=== PATIENT | female | born 1975 | race Caucasian/White ===

== ENCOUNTER 2017-03-13 21:30 | Emergency (ER) | payer MEDICAID ==
[2017-03-13 21:31] VITALS: BMI 33.3
[2017-03-13 22:17] VITALS: BP 140/80
[2017-03-13] MEDS ORDERED: Sodium Chloride 0.9% 1,000 ML IV STA (22:41)
[2017-03-13] MEDS ORDERED: Morphine 4 mg/ml ISec IVP STA (22:41)
--- NOTE | 2017-03-13 22:43 | ED PDOC ---
"Arrival/HPI <Arnie Anne - Last Filed: 03/14/17 01:05> - General Historian: Patient <Jonathon Saini - Last Filed: 03/14/17 02:02> - General Chief Complaint: Abdominal Pain Time Seen by Provider: 03/13/17 22:39 - History of Present Illness Narrative History of Present Illness (Text): 03/13/17 22:41 41 y/o female, pmh including renal colic, nkda, c/o lt. flank pain radiating to the lt. lower abdomen started yesterday. Sharp pain, admits urinary frequency and urgency, no hematuria, no vaginal bleeding or discharge, no night sweat, no nausea or vomiting, no rash, no other medical or psychological complaints. ( Jonathon Saini) Past Medical History - Provider Review Nursing Documentation Reviewed: Yes - Infectious Disease Hx of Infectious Diseases: None - Cardiac Hx Cardiac Disorders: Yes Hx Hypertension: Yes - Pulmonary Hx Respiratory Disorders: No - Neurological Hx Neurological Disorder: No - HEENT Hx HEENT Disorder: No - Renal Hx Renal Disorder: No - Endocrine/Metabolic Hx Endocrine Disorders: No - Hematological/Oncological Hx Blood Disorders: No - Integumentary Hx Dermatological Disorder: No - Musculoskeletal/Rheumatological Hx Musculoskeletal Disorders: No - Gastrointestinal Hx Gastrointestinal Disorders: No - Genitourinary/Gynecological Hx Genitourinary Disorders: No - Psychiatric Hx Psychophysiologic Disorder: No Hx Substance Use: No - Anesthesia Hx Anesthesia: No - Suicidal Assessment Feels Threatened In Home Enviroment: No <Jonathon Saini - Last Filed: 03/14/17 02:02> Family/Social History - Physician Review Nursing Documentation Reviewed: Yes Family/Social History: Unknown Family HX Smoking Status: Current Some Days Smoker Hx Alcohol Use: Yes Hx Substance Use: No <Jonathon Saini - Last Filed: 03/14/17 02:02> Allergies/Home Meds <Arnie Anne - Last Filed: 03/14/17 01:05> <Jonathon Saini - Last Filed: 03/14/17 02:02> Allergies/Adverse Reactions: Allergies No Known Allergies Allergy (Verified 03/13/17 22:12) Home Medications: Home Meds Medication Instructions Recorded Confirmed Propranolol [Propranolol HCl] 10 mg PO BID 03/13/17 03/13/17 Review of Systems - Review of Systems Constitutional: absent: Fatigue Eyes: absent: Vision Changes ENT: absent: Hearing Changes Respiratory: absent: SOB, Cough Cardiovascular: absent: Chest Pain Gastrointestinal: Abdominal Pain. absent: Nausea, Vomiting Genitourinary Female: Frequency. absent: Hematuria, Urine Output Changes, Vaginal Bleeding, Vaginal Discharge Musculoskeletal: Back Pain Skin: absent: Rash, Pruritis, Skin Lesions <Jonathon Saini - Last Filed: 03/14/17 02:02> Physical Exam Vital Signs Reviewed: Yes Temperature: Afebrile Blood Pressure: Normal Pulse: Regular Respiratory Rate: Normal Appearance: Positive for: Well-Appearing, Non-Toxic Pain Distress: Severe Mental Status: Positive for: Alert and Oriented X 3 - Systems Exam Head: Present: Atraumatic, Normocephalic Pupils: Present: PERRL Extroacular Muscles: Present: EOMI Conjunctiva: Present: Normal Mouth: Present: Moist Mucous Membranes Neck: Present: Normal Range of Motion Respiratory/Chest: Present: Clear to Auscultation, Good Air Exchange. No: Respiratory Distress, Accessory Muscle Use Cardiovascular: Present: Regular Rate and Rhythm, Normal S1, S2. No: Murmurs Abdomen: Present: Normal Bowel Sounds. No: Tenderness, Distention, Peritoneal Signs Back: Present: Normal Inspection, CVA Tenderness (+lt.) Upper Extremity: Present: Normal Inspection. No: Cyanosis, Edema Lower Extremity: Present: Normal Inspection. No: Edema Neurological: Present: GCS=15, Speech Normal, Motor Func Grossly Intact, Gait Normal, Memory Normal Skin: Present: Warm, Dry, Normal Color. No: Rashes Psychiatric: Present: Alert, Oriented x 3, Normal Insight, Normal Concentration <Jonathon Saini - Last Filed: 03/14/17 02:02> Vital Signs Temp Pulse Resp BP Pulse Ox 03/13/17 22:14 98.3 F 92 H 18 140/80 99 03/13/17 22:11 98.3 F 92 H 16 140/87 99 Medical Decision Making <rAnie Anne - Last Filed: 03/14/17 01:05> - Lab Interpretations I have reviewed the lab results: Yes Interpretation: No clinic. lab abnormalty - RAD Interpretation Sales Service Representative: Radiologist <Jonathon Saini - Last Filed: 03/14/17 02:02> ED Course and Treatment: 03/13/17 22:42 -labs/ua -CT abdomen and pelvis -IVF/morphine -observe and reassess 03/14/17 01:59 -labs are non-significant -UA show no UTI -CT abdomen and pelvis show no significant acute changes compared with previous study, there is moderate stool -Discharge home with magnesium citrate, motrin, stay hydrated, bed rest, follow up with your own pmd and GI within 2 days, return to the ER for any new or worsening signs or symptoms. (Jonathon Saini) - Lab Interpretations Lab Results: 03/13/17 23:10 03/13/17 23:10 Lab Results 03/13/17 23:10: Sodium 139, Potassium 4.2, Chloride 102, Carbon Dioxide 23, Anion Gap 18, BUN 10, Creatinine 0.5, Est GFR ( Amer) > 60, Est GFR (Non- Af Amer) > 60, Random Glucose 116 H, Calcium 9.5, Total Bilirubin 0.4, AST 31, ALT 46, Alkaline Phosphatase 73, Total Protein 8.1, Albumin 4.6, Globulin 3.6, Albumin/Globulin Ratio 1.3, Lipase 51 03/13/17 23:10: Urine Color Yellow, Urine Appearance Sl cloudy, Urine pH 7.5, Ur Specific [place] 1.015, Urine Protein 30 H, Urine Glucose (UA) 100 H, Urine Ketones Negative, Urine Blood Trace-lysed H, Urine Nitrate Negative, Urine Bilirubin Negative, Urine Urobilinogen 0.2, Ur Leukocyte Esterase Negative, Urine RBC 0 - 2, Urine WBC 0 - 2, Ur Epithelial Cells 6 - 8 03/13/17 23:10: WBC 10.8 D, RBC 4.66, Hgb 13.6, Hct 38.9, MCV 83.5, MCH 29.2, MCHC 35.0, RDW 12.4, Plt Count 261, MPV 10.0, Gran % 54.5, Lymph % (Auto) 35.4 H , [place] % (Auto) 6.2 H, Eos % (Auto) 3.5, Baso % (Auto) 0.4, Gran # 5.85, Lymph # 3.8 H, [place] # 0.7 H, Eos # 0.4, Baso # 0.04 - RAD Interpretation Radiology Orders: 03/13/17 22:41 ABDOMEN & PELVIS [ABD & PELVIS W/O PO OR IV CONT] [CT] Stat 03/13/17 22:41 ABDOMEN & PELVIS [ABD & PELVIS W/O PO OR IV CONT] [CT] Stat ABDOMEN: Liver: There is a small granuloma in the liver. Gallbladder and bile ducts: unremarkable Pancreas: Pancreas is mildly atrophic. Spleen: unremarkable Adrenals: unremarkable Kidneys and ureters: Right kidney and ureter are unremarkable. There are nonobstructing left renal stones. There is mild left ureterectasis to the level of the iliac vessels.. There are no left ureteral stones. Stomach and bowel: Stomach is partially distended. Rotation is normal. There is no obstruction. Appendix and terminal ileum are unremarkable. There is moderate stool in the colon. There is scattered diverticulosis. SAMEERA MORINIKA | Final Radiology Report CONFIDENTIALITY STATEMENT This report is intended only for use by the referring physician, and only in accordance with law. If you received this in error, call [phone]. Page 2 of 2 Appendix: See above. PELVIS: Bladder: Bladder is partially distended. Reproductive: Uterus is unremarkable. There is a very small fatty right adnexal lesion, unchanged. Right adnexa is otherwise unremarkable. Left adnexa is unremarkable. ABDOMEN and PELVIS: Intraperitoneal space: There is no free air or free fluid. Bones/joints: There are degenerative changes in the osseus structures. Soft tissues: There is a small fat containing umbilical hernia. Vasculature: There are vascular calcifications. Lymph nodes: There is shotty adenopathy. IMPRESSION: Nonobstructing left renal stones, no obstructing renal or ureteral stones; mild left ureterectasis to the level of the iliac vessels, unchanged compared to prior study Thank you for allowing us to participate in the care of your patient. Dictated and Authenticated by: Dolores Conti MD 03/14/2017 1:46 AM Eastern Time ([place] & [place]) (Jonathon Saini) - Medication Orders Current Medication Orders: Discontinued Medications Sodium Chloride (Sodium Chloride 0.9%) 1,000 mls @ 999 mls/hr IV .Q1H1M STA Stop: 03/13/17 23:41 Last Admin: 03/13/17 23:19 Dose: 999 mls/hr Morphine Sulfate (Morphine) 4 mg IVP STAT STA Stop: 03/13/17 22:42 Last Admin: 03/13/17 23:18 Dose: 4 mg - PA / DICER OPERATOR / Resident Statement GEORGE has reviewed & agrees with the documentation as recorded. GEORGE has examined the patient and agrees with the treatment plan. <Arnie Anne - Last Filed: 03/14/17 01:05> - PA / DICER OPERATOR / Resident Statement GEORGE has reviewed & agrees with the documentation as recorded. <Jonathon Saini - Last Filed: 03/14/17 02:02> Disposition/Present on Arrival <Arnie Anne - Last Filed: 03/14/17 01:05> - Present on Arrival Any Indicators Present on Arrival: No History of DVT/PE: No History of Uncontrolled Diabetes: No Urinary Catheter: No History of Decub. Ulcer: No History Surgical Site Infection Following: None - Disposition Have Diagnosis and Disposition been Completed?: Yes Disposition Time: 02:01 Patient Plan: Discharge <Jonathon Saini - Last Filed: 03/14/17 02:02> - Disposition Diagnosis: Constipation, Abdominal pain Disposition: HOME/ ROUTINE Condition: IMPROVED Additional Instructions: -Discharge home with magnesium citrate, motrin, stay hydrated, bed rest, follow up with your own pmd and GI within 2 days, return to the ER for any new or worsening signs or symptoms. Prescriptions: Ibuprofen [Motrin] 600 mg PO QID PRN #24 tab PRN Reason: Other Referrals: Daniel WORTHINGTON,MD Adelita [Medical Doctor] - Follow up with primary [facility] [place] [Outside] - Follow up with primary Forms: [employer] (E[place]ian), WORK NOTE"
[2017-03-13] MEDS ORDERED: Sodium Chloride 0.9% 1,000 ML IV SCH (22:45)
[2017-03-13 23:29] LABS: BASO # 0.04 K/mm3 (0.0-2.0); BASO % 0.4 % (0.0-3.0); EOS # 0.4 (0.0-0.7); EOS % 3.5 % (1.5-5.0); GRAN # 5.85 (1.4-6.5); GRAN % 54.5 % (50.0-68.0); HEMOGLOBIN 13.6 g/dL (12.0-16.0); LYMPH # 3.8 (1.2-3.4); LYMPH % 35.4 % (22.0-35.0); MEAN CELL VOLUME 83.5 fl (80.0-105.0); MEAN CORPUSCULAR HEMOGLOBIN 29.2 pg (25.0-35.0); MONO # 0.7 (0.1-0.6); MONO % 6.2 % (1.0-6.0); PLATELET COUNT 261 10^3/uL (120.0-450.0); RBC 4.66 10^6/uL (3.5-6.1); RED CELL DISTRIBUTION WIDTH 12.4 % (11.5-14.5); WHITE BLOOD COUNT 10.8 10^3/ul (4.5-11.0)
[2017-03-13 23:30] LABS: PH,URINE 7.5 (4.7-8.0); URINE BILIRUBIN NEGATIVE (NEGATIVE); URINE BLOOD TRACE-LYSED (NEGATIVE); URINE GLUCOSE (UA) 100 mg/dL (NEGATIVE); URINE LEUKOCYTE ESTERASE NEGATIVE Leu/uL (NEGATIVE); URINE NITRATE NEGATIVE (NEGATIVE); URINE PROTEIN 30 mg/dL (<30 mg/dL); URINE UROBILINOGEN 0.2 E.U./dL (<1 E.U./dL)
[2017-03-13 23:36] LABS: URINE APPEARANCE SL CLOUDY (CLEAR); URINE COLOR YELLOW (YELLOW)
[2017-03-13 23:38] LABS: ALB/GLOB RATIO 1.3 (1.1-1.8); ALBUMIN 4.6 g/dL (3.0-4.8); ALT/SGPT 46 U/L (7-56); AST/SGOT 31 U/L (15-39); BLOOD UREA NITROGEN 10 mg/dL (7-21); CALCIUM 9.5 mg/dL (8.4-10.5); GFR AFRICAN-AMERICAN > 60; GFR NON-AFRICAN AMERICAN > 60; LIPASE 51 U/L (23-300)
[2017-03-13 23:44] LABS: URINE RBC 0 - 2 /hpf (0-2); URINE WBC 0 - 2 /hpf (0-6)
--- NOTE | 2017-03-14 01:47 | CT ---
EXAM: CT Abdomen and Pelvis Without Intravenous Contrast CLINICAL HISTORY: 41 years old, female; Pain; Abdominal pain; Flank; Left; Additional info: Lt. Flank pain TECHNIQUE: Axial computed tomography images of the abdomen and pelvis without intravenous contrast. This CT exam was performed using one or more of the following dose reduction techniques: automated exposure control, adjustment of the mA and/or kV according to patient size, and/or use of iterative reconstruction technique. Coronal and sagittal reformatted images were created and reviewed. EXAM DATE/TIME: 03/13/2017 10:41 PM COMPARISON: CT - ABD PELVIS W/O PO OR IV CONT 03/02/2016 8:20:01 PM FINDINGS: Lower thorax: Heart size is normal. There is a small hiatal hernia. There is minimal scarring at the lung bases ABDOMEN: Liver: There is a small granuloma in the liver. Gallbladder and bile ducts: unremarkable Pancreas: Pancreas is mildly atrophic. Spleen: unremarkable Adrenals: unremarkable Kidneys and ureters: Right kidney and ureter are unremarkable. There are nonobstructing left renal stones. There is mild left ureterectasis to the level of the iliac vessels.. There are no left ureteral stones. Stomach and bowel: Stomach is partially distended. Rotation is normal. There is no obstruction. Appendix and terminal ileum are unremarkable. There is moderate stool in the colon. There is scattered diverticulosis. Appendix: See above. PELVIS: Bladder: Bladder is partially distended. Reproductive: Uterus is unremarkable. There is a very small fatty right adnexal lesion, unchanged. Right adnexa is otherwise unremarkable. Left adnexa is unremarkable. ABDOMEN and PELVIS: Intraperitoneal space: There is no free air or free fluid. Bones/joints: There are degenerative changes in the osseus structures. Soft tissues: There is a small fat containing umbilical hernia. Vasculature: There are vascular calcifications. Lymph nodes: There is shotty adenopathy. IMPRESSION: Nonobstructing left renal stones, no obstructing renal or ureteral stones; mild left ureterectasis to the level of the iliac vessels, unchanged compared to prior study
[2017-03-14] MEDS ORDERED: Magnesium Citrate Oral SOL (300 ml) PO ONE (02:00)
[2017-03-14 02:16] VITALS: PULSE 90; TEMP 98.1
[2017-03-14 02:17] VITALS: RESP 16; O2SAT 98
== END 2017-03-14 02:16 | disposition home or self-care (01) ==
LOC: ED 21:30
DX: K59.00 Constipation, unspecified (principal); R10.9 Unspecified abdominal pain
CPT/HCPCS: 74176; 80053; 81001; 83690; 85025; 96374; 99283; J2270; J7040

== ENCOUNTER 2017-04-19 18:10 | Emergency (ER) | payer MEDICAID ==
[2017-04-19 18:33] VITALS: BMI 33.0
[2017-04-19 18:37] VITALS: BP 148/91; PULSE 88; RESP 18; TEMP 98.7; O2SAT 98
--- NOTE | 2017-04-19 20:11 | ED PDOC ---
Arrival/HPI <Arnie Anne - Last Filed: 04/19/17 21:00> - General Historian: Patient - History of Present Illness Time/Duration: Other (1 day) Symptom Onset: Gradual Symptom Course: Worsening Quality: Stabbing, Throbbing Severity Level: 8 <Celia Park - Last Filed: 04/19/17 21:31> - General Chief Complaint: Finger,Hand,&Wrist Time Seen by Provider: 04/19/17 19:30 - History of Present Illness Narrative History of Present Illness (Text): 04/19/17 21:26 41yr old female presents today with left wrist pain. pt denies trauma or injury. pt states she developed pain in left wrist worsening since yesterday. pt states she took motrin for pain early this morning with improvement in the pain, but the pain returned. pt denies numbness, weakness or tingling in the extremity. no fever/chills. no other complaints. (Celia Park) Past Medical History - Provider Review Nursing Documentation Reviewed: Yes - Travel History Have you recently traveled outside [place] w/in the past 3 mons?: No - Infectious Disease Hx of Infectious Diseases: None - Tetanus Immunization Tetanus Immunization: Unknown - Cardiac Hx Cardiac Disorders: Yes Hx Hypertension: Yes - Pulmonary Hx Respiratory Disorders: No - Neurological Hx Neurological Disorder: No - HEENT Hx HEENT Disorder: No - Renal Hx Renal Disorder: No - Endocrine/Metabolic Hx Endocrine Disorders: No - Hematological/Oncological Hx Blood Disorders: No - Integumentary Hx Dermatological Disorder: No - Musculoskeletal/Rheumatological Hx Musculoskeletal Disorders: No - Gastrointestinal Hx Gastrointestinal Disorders: No - Genitourinary/Gynecological Hx Genitourinary Disorders: No - Psychiatric Hx Psychophysiologic Disorder: No Hx Substance Use: No - Anesthesia Hx Anesthesia: No - Suicidal Assessment Feels Threatened In Home Enviroment: No <Celia Park - Last Filed: 04/19/17 21:31> Family/Social History - Physician Review Nursing Documentation Reviewed: Yes Family/Social History: Unknown Family HX Smoking Status: Current Some Days Smoker Hx Alcohol Use: Yes Hx Substance Use: No <Celia Park - Last Filed: 04/19/17 21:31> Allergies/Home Meds <Arnie Anne - Last Filed: 04/19/17 21:00> <Celia Park - Last Filed: 04/19/17 21:31> Allergies/Adverse Reactions: Allergies No Known Allergies Allergy (Verified 03/13/17 22:12) Review of Systems - Review of Systems Constitutional: absent: Fatigue, Fevers Respiratory: absent: SOB, Cough Cardiovascular: absent: Chest Pain, Palpitations Gastrointestinal: absent: Abdominal Pain, Diarrhea, Nausea, Vomiting Musculoskeletal: Arthralgias (left wrist pain). absent: Back Pain, Neck Pain Skin: absent: Rash, Pruritis Neurological: absent: Headache, Dizziness Psychiatric: absent: Anxiety, Depression <Celia Park - Last Filed: 04/19/17 21:31> Physical Exam Vital Signs Reviewed: Yes Temperature: Afebrile Blood Pressure: Hypertensive Pulse: Regular Respiratory Rate: Normal Appearance: Positive for: Well-Appearing, Non-Toxic, Comfortable Pain Distress: None Mental Status: Positive for: Alert and Oriented X 3 - Systems Exam Head: Present: Atraumatic Mouth: Present: Moist Mucous Membranes Neck: Present: Normal Range of Motion Respiratory/Chest: Present: Clear to Auscultation, Good Air Exchange. No: Respiratory Distress, Accessory Muscle Use Cardiovascular: Present: Regular Rate and Rhythm Upper Extremity: Present: Normal ROM, NORMAL PULSES, Tenderness (left wrist; + ttp over dorsal radial aspect of wrist; no snuff box tenderness. full rom of wrist. sensation and distal pulses intact. no edema, no erythema; no ecchymosis. ), Neurovascularly Intact, Capillary Refill < 2s. No: Swelling, Erythema, Deformity Neurological: Present: GCS=15, Speech Normal Skin: Present: Warm, Dry, Normal Color. No: Rashes Psychiatric: Present: Alert, Oriented x 3 <Celia Park - Last Filed: 04/19/17 21:31> Vital Signs Temp Pulse Resp BP Pulse Ox 04/19/17 18:35 98.7 F 88 18 148/91 H 98 04/19/17 18:10 97.4 F L 90 16 154/100 H 96 Medical Decision Making <Arnie Anne - Last Filed: 04/19/17 21:00> <Celia Park - Last Filed: 04/19/17 21:31> ED Course and Treatment: 04/19/17 21:29 Patient nontoxic well-appearing in no distress with stable vital signs X-rays of the left wrist; no fracture toradol IM; Patient placed in velcro thumb spica splint pt reassessment; pt feeling much better after medications. I discussed all results with patient advised to followup with the orthopedist for the next 2 days. Return if symptoms worsen persist or new symptoms develop i advised the patient that although the xrays show no fracture; there is still a possibility for ligamentous or tendon injury the patient must see the orthopedist for further evaluation. Patient verbalizes understanding of discharge instructions and need for immediate followup. Impression: wrist pain Motrin every 6 hours as needed for pain Use splint Rest, ice, compression, elevation Followup with the orthopedist within the next 2 days Followup with primary care physician within the next 2 days Return if any other concerning symptoms develop (Celia Park) - RAD Interpretation Radiology Orders: 04/19/17 19:31 WRIST, LEFT 3 VIEWS [RAD] Stat - Medication Orders Current Medication Orders: Discontinued Medications Ketorolac Tromethamine (Toradol) 60 mg IM STAT STA Stop: 04/19/17 19:32 Last Admin: 04/19/17 19:50 Dose: 60 mg - PA / PROFESSOR OF EDUCATION / Resident Statement / has reviewed & agrees with the documentation as recorded. <Arnie Anne - Last Filed: 04/19/17 21:00> Disposition/Present on Arrival <Arnie Anne - Last Filed: 04/19/17 21:00> - Present on Arrival Any Indicators Present on Arrival: No History of DVT/PE: No History of Uncontrolled Diabetes: No Urinary Catheter: No History of Decub. Ulcer: No History Surgical Site Infection Following: None - Disposition Have Diagnosis and Disposition been Completed?: Yes Disposition Time: 19:50 Patient Plan: Discharge <Celia Park - Last Filed: 04/19/17 21:31> - Disposition Diagnosis: Wrist pain Disposition: HOME/ ROUTINE Patient Problems: Current Active Problems Problem Status Onset Wrist pain Acute Condition: GOOD Discharge Instructions (ExitCare): Wrist Injury (ED) Additional Instructions: Motrin every 6 hours as needed for pain Use wrist splint. Rest, ice, compression, elevation Followup with the orthopedist within the next 2 days Followup with primary care physician within the next 2 days Return if any other concerning symptoms develop Prescriptions: Ibuprofen [Motrin] 600 mg PO Q6H PRN #20 tab PRN Reason: pain/fever reduction Referrals: Franc Villagomez III, MD [Medical Doctor] - Follow up with primary [facility] [place] [Outside] - Follow up with primary Forms: [employer] (Slovak), WORK NOTE
--- NOTE | 2017-04-20 12:43 | RAD ---
PROCEDURE: Left Wrist Radiographs. HISTORY: wrist pain COMPARISON: None. FINDINGS: BONES: Normal. No fracture. JOINTS: Normal. No dislocation. SOFT TISSUES: Normal. OTHER FINDINGS: None. IMPRESSION: No evidence of acute displaced fracture nor dislocation. If symptoms persist or occult fracture suspected clinically recommend repeat radiographs in 5-10 days as most fractures should become radiographically evident in this timeframe
== END 2017-04-19 20:40 | disposition home or self-care (01) ==
LOC: ED 18:10
DX: M25.532 Pain in left wrist (principal)
CPT/HCPCS: 73110; 96372; 99284; J1885

== ENCOUNTER 2017-08-09 09:39 | Emergency (ER) | payer MEDICAID ==
[2017-08-09 10:00] VITALS: RESP 18; TEMP 98.5
--- NOTE | 2017-08-09 10:01 | ED PDOC ---
Arrival/HPI - General Time Seen by Provider: 08/09/17 09:58 Historian: Patient - History of Present Illness Narrative History of Present Illness (Text): 08/09/17 09:59 42 y/o female, no pmh, nkda, c/o lt. breast pain x 3 days. Pt. stated that she had belly rash about 3 days ago which resolved now and been touching the left breast, incidentally noted to have lt. breast lump with painful to touch, no nipple discharges or axilla pain, no numbness or tingling, no night sweat, no dizziness, no other medical or psychological complaints. Past Medical History - Provider Review Nursing Documentation Reviewed: Yes - Infectious Disease Hx of Infectious Diseases: None - Tetanus Immunization Tetanus Immunization: Unknown - Cardiac Hx Cardiac Disorders: Yes Hx Hypertension: Yes - Pulmonary Hx Respiratory Disorders: No - Neurological Hx Neurological Disorder: No - HEENT Hx HEENT Disorder: No - Renal Hx Renal Disorder: No - Endocrine/Metabolic Hx Endocrine Disorders: No - Hematological/Oncological Hx Blood Disorders: No - Integumentary Hx Dermatological Disorder: No - Musculoskeletal/Rheumatological Hx Musculoskeletal Disorders: No - Gastrointestinal Hx Gastrointestinal Disorders: No - Genitourinary/Gynecological Hx Genitourinary Disorders: No - Psychiatric Hx Psychophysiologic Disorder: No Hx Substance Use: No - Anesthesia Hx Anesthesia: No - Suicidal Assessment Feels Threatened In Home Enviroment: No Family/Social History - Physician Review Nursing Documentation Reviewed: Yes Family/Social History: Unknown Family HX Smoking Status: Current Some Days Smoker Hx Alcohol Use: Yes Hx Substance Use: No Allergies/Home Meds Allergies/Adverse Reactions: Allergies No Known Allergies Allergy (Verified 03/13/17 22:12) Review of Systems - Review of Systems Constitutional: absent: Fatigue, Fevers Eyes: absent: Vision Changes ENT: absent: Hearing Changes Respiratory: absent: SOB, Cough Cardiovascular: absent: Chest Pain Gastrointestinal: absent: Abdominal Pain, Nausea, Vomiting Musculoskeletal: Other (+lt. breast pain). absent: Arthralgias, Back Pain, Myalgias Neurological: absent: Headache, Dizziness Hemo/Lymphatic: absent: Adenopathy Psychiatric: absent: Anxiety, Depression, Suicidal Ideation Physical Exam Vital Signs Temp Pulse Resp Pulse Ox 08/09/17 09:43 98.5 F 101 H 18 99 - Systems Exam Head: Present: Atraumatic, Normocephalic Pupils: Present: PERRL Extroacular Muscles: Present: EOMI Conjunctiva: Present: Normal Mouth: Present: Moist Mucous Membranes Neck: Present: Normal Range of Motion Respiratory/Chest: Present: Clear to Auscultation, Good Air Exchange. No: Respiratory Distress, Accessory Muscle Use Cardiovascular: Present: Regular Rate and Rhythm, Normal S1, S2. No: Murmurs Abdomen: Present: Normal Bowel Sounds. No: Tenderness, Distention, Peritoneal Signs Breast/Axillary: Present: Other (rt. breast examination is unremarkable), Symmetrical, Tender to Palpation (+ttp on the lt. 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 No: Axillary Lymphad, Discoloration, Erythema, Fluctuance, Masses, Nipple Discharge, Swelling Back: Present: Normal Inspection Upper Extremity: Present: Normal Inspection. No: Cyanosis, Edema Lower Extremity: Present: Normal Inspection. No: Edema Neurological: Present: GCS=15, Speech Normal, Motor Func Grossly Intact, Gait Normal, Memory Normal Skin: Present: Warm, Dry, Normal Color. No: Rashes Psychiatric: Present: Alert, Oriented x 3, Normal Insight, Normal Concentration Medical Decision Making ED Course and Treatment: 08/09/17 09:59 -mammogram -motrin -observe and reassess 08/09/17 11:34 -Urine hcg negative -Breast sonogram: BIRADS 1 (negative) Recommendation: Continue annual screening mammography, as per ACR guidelines -Pain improved with the motrin -Discharge home with naproxen, continue to follow up with the annual mammogram with your own pmd, follow up with your own pmd and obgyn within 2 days, return to the ER for any new or worsening signs or symptoms. - RAD Interpretation Radiology Orders: 08/09/17 10:11 BREAST UNILATERAL LEFT [US] Stat TECHNIQUE: Sonographic evaluation of the left breast FINDINGS: LEFT BREAST: No solid or cystic masses identified. No axillary lymphadenopathy identified. IMPRESSION: No significant or acute findings to account for/ related to the clinical presentation. BIRADS: BIRADS 1 (negative) Recommendation: Continue annual screening mammography, as per ACR guidelines Elective follow-up mammogram advised. Apprenticeship Representative: Radiologist - PA / [employer] OPERATOR / Resident Statement MD/DO has reviewed & agrees with the documentation as recorded. Disposition/Present on Arrival - Present on Arrival Any Indicators Present on Arrival: No History of DVT/PE: No History of Uncontrolled Diabetes: No Urinary Catheter: No History of Decub. Ulcer: No History Surgical Site Infection Following: None - Disposition Have Diagnosis and Disposition been Completed?: Yes Diagnosis: Breast pain Disposition: HOME/ ROUTINE Disposition Time: 11:37 Patient Plan: Discharge Condition: IMPROVED Discharge Instructions (ExitCare): Chest Pain (ED), Breast Care for the Non- breast Feeding Woman (ED) Print Language: BELARUSIAN Additional Instructions: -Discharge home with naproxen, continue to follow up with the annual mammogram with your own pmd, follow up with your own pmd and obgyn within 2 days, return to the ER for any new or worsening signs or symptoms. Prescriptions: Naproxen 500 mg PO BID PRN #20 tab PRN Reason: Other Referrals: Waqas Gaitan MD [Primary Care Provider] - Follow up with primary Will Martinez DO [Staff Provider] - Follow up with primary Forms: WORK NOTE, [employer] (Frisian)
[2017-08-09 10:10] VITALS: BMI 32.4
--- NOTE | 2017-08-09 11:17 | US ---
HISTORY: TECHNIQUE: Sonographic evaluation of the left breast FINDINGS: LEFT BREAST: No solid or cystic masses identified. No axillary lymphadenopathy identified. IMPRESSION: No significant or acute findings to account for/ related to the clinical presentation. BIRADS: BIRADS 1 (negative) Recommendation: Continue annual screening mammography, as per ACR guidelines Elective follow-up mammogram advised.
[2017-08-09 12:01] VITALS: BP 149/91; PULSE 89; O2SAT 98
== END 2017-08-09 12:02 | disposition home or self-care (01) ==
LOC: ED 09:39
DX: N64.4 Mastodynia (principal)